=== PATIENT | male | born 1975 | race African-American/Black ===

== ENCOUNTER 2017-07-17 18:21 | Emergency (ER) | payer BC ==
[~2017-07-17] VITALS: Ht 190.5 cm; Wt 127.0 kg
[~2017-07-17 18:21] MED LIST: AZITHROMYCIN 2250 MG PO; MEDROLDOSEPACK PO; VICODIN 5-5001 EACH PO
[2017-07-17] MEDS ORDERED: COZAAR 50 MG TA50 M2 PO (18:26)
[2017-07-17] MEDS ORDERED: BACTRIM DS TAB1 EACH PO (19:36)
[2017-07-17] MEDS ORDERED: HYDROCODONE-AP1 EAC6 PO (19:36)
[2017-07-17 19:58] VITALS: BP 179/124
== END 2017-07-17 19:55 | disposition home or self-care (01) ==
LOC: ER 18:21
DX: L03.011 Cellulitis of right finger (principal)

== ENCOUNTER 2017-11-09 19:21 | Emergency (ER) | payer OTHER ==
[~2017-11-09] VITALS: Ht 190.5 cm; Wt 127.0 kg
[~2017-11-09 19:21] MED LIST changes: +BACTRIM DS TAB1 EACH PO; +COZAAR 50 MG TA50 M2 PO; +HYDROCODONE-AP1 EAC6 PO
[2017-11-09] MEDS ORDERED: NORCO 5-325 TA1 EACH PO (20:39)
[2017-11-09 21:05] VITALS: BP 148/94
== END 2017-11-09 21:06 | disposition home or self-care (01) ==
LOC: ER 19:21
DX: S83.91XA Sprain of unspecified site of right knee, initial encounter (principal); S80.01XA Contusion of right knee, initial encounter; W10.9XXA Fall (on) (from) unspecified stairs and steps, initial encounter; Y93.89 Activity, other specified; Y92.89 Other specified places as the place of occurrence of the external cause; Y99.8 Other external cause status

== ENCOUNTER 2018-09-03 19:08 | Emergency (ER) | payer BC ==
[~2018-09-03] VITALS: Ht 190.5 cm; Wt 122.5 kg
[~2018-09-03 19:08] MED LIST changes: +NORCO 5-325 TA1 EACH PO
[2018-09-03] MEDS ORDERED: COZAAR 25 MG TA25 M1 PO (19:13)
[2018-09-03] MEDS ORDERED: COZAAR 50 MG TA50 M1 PO (19:49)
[2018-09-03 20:39] VITALS: BP 168/95
== END 2018-09-03 20:26 | disposition home or self-care (01) ==
LOC: ER 19:08
DX: D17.22 Benign lipomatous neoplasm of skin and subcutaneous tissue of left arm (principal); I10 Essential (primary) hypertension; Z76.0 Encounter for issue of repeat prescription

== ENCOUNTER 2019-02-20 09:28 | Emergency (ER) | payer BC, OTHER ==
[~2019-02-20] VITALS: Ht 190.5 cm; Wt 127.0 kg
[2019-02-20 09:28] VITALS: BP 194/111
[~2019-02-20 09:28] MED LIST changes: +COZAAR 25 MG TA25 M1 PO; +COZAAR 50 MG TA50 M1 PO
[2019-02-20 10:00] LABS: URINE BILIRUBIN NEGATIVE (Negative); URINE BLOOD NEGATIVE (Negative); URINE CLARITY CLEAR; URINE COLOR YELLOW; URINE GLUCOSE-RANDOM* NEGATIVE (Negative); URINE KETONES NEGATIVE (Negative); URINE LEUKOCYTES-REFLEX NEGATIVE (Negative); URINE NITRITE-REFLEX NEGATIVE (Negative); URINE PROTEIN (DIPSTICK) NEGATIVE (Negative); URINE SPECIFIC GRAVITY 1.015 (1.005-1.035)
[2019-02-20 10:18] LABS: ABSOLUTE NEUTROPHILS 2.6 thou/uL (1.4-8.2); BASOPHILS 0.9 % (0.0-2.0); CALCIUM 9.4 mg/dL (8.5-10.1); CREATININE 0.9 mg/dL (0.7-1.3); EOSINOPHILS 1.4 % (0.0-3.0); HEMATOCRIT 40.3 % (42.0-52.0); LYMPHOCYTES 34.5 % (24.0-44.0); MCH 26.7 pg (26.0-34.0); MCHC 32.2 g/dL (28.0-37.0); MCV 83.1 fL (80.0-100.0); MONOCYTES 7.3 % (1.0-8.0); PLATELET COUNT 147 thou/uL (150-400); POLYS 55.9 % (36.0-66.0); POTASSIUM 3.7 mmol/L (3.5-5.1); RBC 4.85 mil/uL (4.50-6.00); RDW 16.2 % (10.5-14.5); WBC 4.7 thou/uL (4.0-11.0)
[2019-02-20 10:24] LABS: ALBUMIN 4.1 g/dL (3.4-5.0); TOTAL BILIRUBIN 0.8 mg/dL (<0.1-1.0); TOTAL PROTEIN 8.1 g/dL (6.4-8.2)
[2019-02-20] MEDS ORDERED: COZAAR 25 MG TA25 M1 PO (11:49)
== END 2019-02-20 11:55 | disposition home or self-care (01) ==
LOC: ER 09:28
PROVIDERS: Emergency Medicine
DX: R10.84 Generalized abdominal pain (principal); I10 Essential (primary) hypertension

== ENCOUNTER 2021-03-09 15:18 | Emergency (ER) | payer BC, OTHER ==
[~2021-03-09] VITALS: Ht 190.5 cm; Wt 136.1 kg
[2021-03-09 16:09] LABS: ABSOLUTE NEUTROPHILS 3.3 thou/uL (1.4-8.2); BASOPHILS 0.6 % (0.0-2.0); EOSINOPHILS 0.9 % (0.0-3.0); HEMATOCRIT 40.2 % (42.0-52.0); HEMOGLOBIN 12.9 gm/dL (14.0-18.0); LYMPHOCYTES 29.6 % (24.0-44.0); MCH 26.5 pg (26.0-34.0); MCHC 32.1 g/dL (28.0-37.0); MCV 82.6 fL (80.0-100.0); MONOCYTES 9.2 % (1.0-8.0); PLATELET COUNT 147 thou/uL (150-400); POLYS 59.7 % (36.0-66.0); RBC 4.87 mil/uL (4.50-6.00); RDW 16.1 % (10.5-14.5); WBC 5.5 thou/uL (4.0-11.0)
[2021-03-09 16:23] LABS: CREATININE 1.1 mg/dL (0.7-1.3); POTASSIUM 3.8 mmol/L (3.5-5.1)
[2021-03-09 16:32] LABS: ALBUMIN 3.6 g/dL (3.4-5.0); TOTAL BILIRUBIN 0.4 mg/dL (0.2-1.0); TOTAL PROTEIN 7.4 g/dL (6.4-8.2)
[2021-03-09 19:56] VITALS: BP 151/107
--- NOTE | 2021-03-10 08:47 | EKG ---
[facility] [place] [address] ELECTROCARDIOGRAM REPORT Name: JARED SIERRA Room #: [facility]P [facility] [id number] Admission: 03/09/21 Attend Phys: Discharge: 03/09/21 Date of : 73 Report #: [id number] [facility] ED Test Date: 2021-03-09 Test Time: 15:31:15 Pat Name: JARED SIERRA Department: Room: Gender: Assistant Hall Director: AMOR : 1975 Requested By: Lucita Shepherd Order Number: [id number] MD: Anmol Gonzales Measurements Intervals Cora Rate: 81 P: 29 CO: 199 QRS: -63 QRSD: 130 T: 2 QT: 415 QTc: 482 Interpretive Statements Sinus rhythm Nonspecific IVCD with LAD Left ventricular hypertrophy Poor R wave progression Compared to ECG 07/23/2010 09:12:37 No significant change was found Electronically Signed On 03-10-2021 8:47:24 [employer] by Anmol Gonzales [email or web address] <ELECTRONICALLY SIGNED> By: Anmol Gonzales MD, [facility] 03/10/21 0847 1531 30 Anmol Gonzales MD, FACC /EPI
== END 2021-03-09 19:57 | disposition home or self-care (01) ==
LOC: ER 15:18
PROVIDERS: Emergency Medicine
DX: R42 Dizziness and giddiness (principal); Z20.822 Contact with and (suspected) exposure to COVID-19; D64.9 Anemia, unspecified; I42.9 Cardiomyopathy, unspecified; I95.1 Orthostatic hypotension; I10 Essential (primary) hypertension; Z90.89 Acquired absence of other organs; Z79.891 Long term (current) use of opiate analgesic; Z79.899 Other long term (current) drug therapy